=== PATIENT | male | born 1970 | race Caucasian/White ===

== ENCOUNTER 2016-09-05 13:18 | Emergency (ER) | payer BC, OTHER ==
[2016-09-05] MEDS ORDERED: MAG HYDROX/AL HYDROX/SIMETH 30 ML CUP PO STA (14:16)
--- NOTE | 2016-09-05 14:24 | ED ---
General Adult HPI - General Chief complaint: Recheck/Abnormal Lab/Rx Stated complaint: Acid Reflux Source: patient Mode of arrival: ambulatory Limitations: no limitations - History of Present Illness Initial comments: Patient is a 46-year-old male percents for evaluation for possible piece of steak stuck in his esophagus. Past medical history as below. Patient has a history of getting meat stuck in his esophagus in the past. Last episode was about 5 years ago. He has a history of gastric reflux. Is actually scheduled for an EGD and colonoscopy this week. Stated he was eating steak last night he felt a piece of meat get stuck in his lower esophagus. He went to bed last night 3 thought he got it out. This morning when he was driving to work, he was sipping on coffee and he threw up. He went home and tried to eat a salad and threw that up as well. As he thought it was still stuck in his esophagus, he came in for evaluation. While in the waiting room he is drinking water and was able to keep it down. He now believes that the piece of meat is gone. He states he feels well. Denies fever, chills, headache, changes in vision, URI symptoms, shortness breath, cough, chest pain, nausea or vomiting, diarrhea, pain or burning with urination. - Related Data Home Medications Medication Instructions Recorded Confirmed HYDROcodone/APAP 10-325MG [[place] 1 tab PO DAILY 08/22/14 09/05/16 10-325] Omeprazole [PriLOSEC] 20 mg PO DAILY 08/22/14 09/05/16 Fluticasone Nasal [place] [Flonase 1 spray EA NOSTRIL DAILY PRN 09/05/16 09/05/16 Nasal [place]] Allergies Allergy/AdvReac Type Severity Reaction Status Date / Time cefazolin sodium AdvReac Unknown Verified 09/05/16 14:24 [From [facility]] Review of Systems ROS Statement: Those systems with pertinent positive or pertinent negative responses have been documented in the HPI. ROS Other: All systems not noted in ROS Statement are negative. Past Medical History Past Medical History: GERD/Reflux Additional Past Medical History / Comment(s): sleep apnea History of Any Multi-Drug Resistant Organisms: None Reported Past Surgical History: Joint Replacement Additional Past Surgical History / Comment(s): bilateral knee replacement Past Psychological History: No Psychological Hx Reported Smoking Status: Current every day smoker Past Alcohol Use History: Daily Past Drug Use History: None Reported General Exam Limitations: no limitations General appearance: alert, in no apparent distress, other (Well-appearing. No drooling.) Head exam: Present: atraumatic, normocephalic, normal inspection Eye exam: Present: normal appearance, PERRL, EOMI. Absent: scleral icterus, conjunctival injection, periorbital swelling ENT exam: Present: normal exam, mucous membranes moist, other (Absent uvula. Some mild erythema to the posterior oropharynx) Neck exam: Present: normal inspection. Absent: tenderness, meningismus, lymphadenopathy Respiratory exam: Present: normal lung sounds bilaterally, other (Clear bilaterally without wheezes rales or rhonchi. No conversational dyspnea hypoxia or tachypnea.). Absent: respiratory distress, wheezes, rales, rhonchi, stridor Cardiovascular Exam: Present: regular rate, normal rhythm, normal heart sounds. Absent: systolic murmur, diastolic murmur, rubs, gallop, clicks GI/Abdominal exam: Present: soft, normal bowel sounds, other (Abdomen is soft and nontender.). Absent: distended, tenderness, guarding, rebound, rigid Extremities exam: Present: normal inspection, full ROM, normal capillary refill. Absent: tenderness, pedal edema, joint swelling, calf tenderness Back exam: Present: normal inspection Neurological exam: Present: alert, oriented X3, CN II-XII intact Psychiatric exam: Present: normal affect, normal mood Skin exam: Present: warm, dry, intact, normal color. Absent: rash Course Vital Signs 09/05/16 09/05/16 13:20 15:04 Temperature 97.6 F 97.6 F Pulse Rate 74 74 Respiratory 16 16 Rate Blood Pressure 130/76 130/76 O2 Sat by Pulse 98 98 Oximetry Medical Decision Making - Medical Decision Making 1420: Patient is a 46-year-old male who presents for evaluation for a sensation that something is stuck in his lower esophagus. He has a history of this. He for thinks that it is cleared currently. Was able tolerate water in the waiting room. We'll give an oral challenge. Maalox. 2 view CXR. 1535: Review chest x-ray. No obvious infiltrates or clear obstruction. Patient attempted by mouth challenge with Vikas much and water. Stated that he had a fullness sensation. Started coughing. Unable to tolerate. Page to GI health occupations instructor. 1540: Spoke with Dr. Gonzalez - Will come and evaluate the pt. NPO. 1645: Reevaluated the patient. Resting comfortably in the stretcher. Still feels a pressure-like sensation in his lower esophagus. Awaiting GI evaluation. 1730: EGD performed. She has lower esophageal strictures. Recommended that he take his Prilosec twice a day. Follow-up with Dr. Gonzalez in one month. Discussed with the patient. Voiced understanding. Recommended that he avoid any meat. Also recommended chewing his food thoroughly and small swallows. I discussed signs and symptoms on when to return to the emergency department for further evaluation. Answered all questions. Comfortable with discharge home. His and son are coming to pick him up. He will not drive home. Disposition Clinical Impression: Esophageal stricture, Hiatal hernia Disposition: HOME SELF-CARE Condition: Good Instructions: Esophageal Stricture (ED) Referrals: Manan Arguello DO [Primary Care Provider] - 1-2 days Henry Gonzalez MD [STAFF PHYSICIAN] - 1-2 days
[2016-09-05] MEDS ORDERED: LIDOCAINE VISCOUS 2% 15 ML CUP MUCOUS MEM ONE (14:39)
--- NOTE | 2016-09-05 15:02 | XR ---
EXAMINATION TYPE: XR chest 2V DATE OF EXAM: 09/05/2016 COMPARISON: 06/20/2011 HISTORY: Chest pain TECHNIQUE: Frontal and lateral views of the chest are obtained. FINDINGS: There is no focal air space opacity. No evidence for pneumothorax. No pleural effusion. The cardiac silhouette size is within normal limits. The osseous structures are grossly intact. IMPRESSION: 1. No acute cardiopulmonary process.
[2016-09-05] MEDS ORDERED: PROPOFOL 10 MG/ML 20 ML VIAL IV ONE (16:59)
[2016-09-05] MEDS ORDERED: LIDOCAINE 1% INJ 10MG/ML (20 ML MDV) ONE (16:59)
[2016-09-05] MEDS ORDERED: SODIUM CHLORIDE 0.9% 500 ML IV ONE (17:00)
[2016-09-05 17:57] VITALS: BP 134/73; PULSE 64; RESP 20; TEMP 98.2
== END 2016-09-05 17:56 | disposition home or self-care (01) ==
LOC: EC 13:18
DX: K22.2 Esophageal obstruction (principal); K44.9 Diaphragmatic hernia without obstruction or gangrene; K21.9 Gastro-esophageal reflux disease without esophagitis; F17.200 Nicotine dependence, unspecified, uncomplicated; Z88.1 Allergy status to other antibiotic agents; Z79.891 Long term (current) use of opiate analgesic; Z79.899 Other long term (current) drug therapy
CPT/HCPCS: 99284; 96360; 71020; 43235; J2001; J2704

== ENCOUNTER → 2016-09-09 | Outpatient (CLI) | payer BC, OTHER ==
--- NOTE | 2016-09-09 17:51 | US ---
EXAMINATION TYPE: US thyroid st tissue head/neck DATE OF EXAM: 09/09/2016 COMPARISON: 09/05/2014 CLINICAL HISTORY: E0402 GOITER. Follow up known nodules GLAND SIZE: Right Lobe: 4.6 x 1.6 x 2.0 cm Overall Parenchyma: heterogenous Left Lobe: 3.8 x 1.7 x 1.7 cm Overall Parenchyma: heterogeneous Isthmus Thickness: 0.4 cm NODULES RIGHT: # of nodules measured on right: 4 1. 1.8 X 1.4 x 1.4 cm hypoechoic mixed nodule at the mid pole with well-defined margins. This nodul e is wider than tall and shows intranodular vascularity. Prior size: 1.5 x 1.1 x 1.2 cm 2. 0.7 X 0.6 x 0.8 cm calcified shadowing nodule at the upper pole with well-defined margins. This n odule is wider than tall and shows no intranodular vascularity. Prior size: 0.8 x 0.7 x 0.7 cm 3. 0.9 X 0.8 x 0.7 cm hypoechoic mixed nodule at the mid pole with well-defined margins. This nodule is wider than tall and shows no intranodular vascularity. Prior size: 0.8 x 0.7 x 0.7 cm 4. 0.5 X 0.4 x 0.4 cm hypoechoic mixed nodule at the mid pole with well-defined margins. This nodule is wider than tall and shows no intranodular vascularity. Prior size: 0.5 x 0.5 x 0.4 cm LEFT: # of nodules measured on left: 1 1. 0.8 X 0.8 x 0.9 cm hypoechoic mixed nodule at the lower pole with well-defined margins. This nod ule is wider than tall and shows no intranodular vascularity. Prior size: 0.8 x 0.7 x 0.6 cm ISTHMUS: # of nodules measured in the isthmus: 0 Bilateral neck scanned, no evidence of lymphadenopathy. Heterogeneous thyroid with bilateral nodules described above. IMPRESSION: Bilateral multiple findings consistent with multinodular goiter. There is overall no adverse change c ompared to old exam.
== END | disposition home or self-care (01) ==
LOC: RADUSWWP 16:40
PROVIDERS: ATTEND Family Medicine
DX: E04.2 Nontoxic multinodular goiter (principal)
CPT/HCPCS: 76536

== ENCOUNTER 2016-11-22 07:30 | Day surgery (SDC) | payer BC, OTHER ==
[2016-11-21 11:26] VITALS: BMI 28.0
[2016-11-22 07:53] VITALS: TEMP 98.2
[2016-11-22] MEDS: LACTATED RINGERS 1,000 ML IV SCH ×2 (08:01→08:43)
[2016-11-22] MEDS ORDERED: PROPOFOL 10 MG/ML 20 ML VIAL IV ONE (08:45)
[2016-11-22 09:29] VITALS: BP 114/78; PULSE 74; RESP 18
--- NOTE | 2016-11-22 09:42 | P.PCN ---
Date of Procedure: 11/22/16 Procedure(s) Performed: Procedure: 1. Esophagogastroduodenoscopy and biopsy. 2. Total colonoscopy. Preoperative diagnosis: Dysphagia and change in bowel habits. Postoperative diagnosis: 1. Hiatal hernia and distal esophagitis with nonobstructing stricture. 2. Mild antral gastritis. 3. Colonoscopy within normal limits. Preparation: HalfLytely prep. Sedation: Was provided by anesthesia. Brief clinical history: The patient is a 46-year-old male who was scheduled for this evaluation because of change in bowel habits. The patient has chronic reflux for more than 10 years requiring PPI therapy and was in the emergency room around 6 weeks ago with obstructive dysphagia after he ate a piece of steak. The patient had similar episode several years prior. Procedure: With the patient on his left lateral decubitus position and after informed consent and adequate sedation, I passed the Olympus-GIF 160 video upper endoscope through the cricopharyngeus down the esophagus. GE junction was around 36 cm from the incisors and there was a 2-3 cm sliding hiatal hernia. The distal esophagus showed a broad erosion and superficial ulceration close to the GE junction and there was a short benign nonobstructing stricture but no evidence of Waters's esophagus or bleeding. The endoscope was then passed into the stomach which was insufflated with air and inspected in detail including the retroflex view in the cardia. Finally, the endoscope was passed through the pylorus into the duodenum. Pyloric channel, duodenal bulb, post bulbar area and descending duodenum appeared within normal limits. The antrum showed some mottling and erythema consistent with mild gastritis but no ulcers or erosions. At this point, I proceeded to obtain biopsies from the duodenum, antrum, GE junction and esophagus before the endoscope was withdrawn and I then proceeded with the colonoscopy. Perianal area did not show any fissures or fistulas. There were no masses felt on digital rectal examination. The Olympus CFQ 160L video colonoscope was then inserted in the rectum in the usual fashion and advanced to the cecum. I intubated the ileocecal valve and examined the terminal ileum. Terminal ileum and colon appeared healthy with no edema, erythema, exudation, ulceration or spontaneous bleeding. No polyps or tumors were seen or any obvious diverticular disease or other pathology. No biopsies were indicated. I retroflexed the endoscope in the rectum before the endoscope was withdrawn. The patient tolerated the procedure well. Plan: The patient was reassured. Will await biopsy results. Further plans can be made based on his course and biopsy results. I recommended repeat colonoscopy in 10 years in the absence of family history of colon cancer or finding of polyps today. He will follow up with you as planned.
== END 2016-11-22 10:27 | disposition home or self-care (01) ==
LOC: ORWHC2ENDO 07:30
DX: K29.50 Unspecified chronic gastritis without bleeding (principal); K21.0 Gastro-esophageal reflux disease with esophagitis; K44.9 Diaphragmatic hernia without obstruction or gangrene; K20.0 Eosinophilic esophagitis; R19.4 Change in bowel habit; Z87.891 Personal history of nicotine dependence; G47.33 Obstructive sleep apnea (adult) (pediatric); Z79.891 Long term (current) use of opiate analgesic; Z79.899 Other long term (current) drug therapy; Z88.1 Allergy status to other antibiotic agents
CPT/HCPCS: 88305; 88342; 45378; 43239; J2704

== ENCOUNTER → 2017-10-24 | Outpatient (CLI) | payer BC ==
--- NOTE | 2017-10-25 08:02 | US ---
EXAMINATION TYPE: US thyroid st tissue head/neck DATE OF EXAM: 10/24/2017 COMPARISON: US 09/09/2016 CLINICAL HISTORY: 47-year-old male E04.2 Nontoxic Multinodular Goiter. TECHNIQUE: Multiple sonographic images of the thyroid gland are obtained. FINDINGS: GLAND SIZE: Right Lobe: 4.1 x 1.8 x 1.6 cm Overall Parenchyma: heterogenous Left Lobe: 4.4 x 1.6 x 1.5 cm Overall Parenchyma: heterogeneous Isthmus Thickness: 0.4 cm NODULES RIGHT: # of nodules measured on right: 3 1. 2.2 X 1.6 x 1.8 cm hypoechoic mixed nodule at the mid pole with well-defined margins; . This no dule is wider than tall and shows intranodular vascularity. Prior size: 1.8 x 1.4 x 1.4 cm 2. 0.6 X 0.7 x 0.7 cm echogenic solid calcified nodule at the upper pole with well-defined margins; . This nodule is wider than tall and shows no intranodular vascularity. Prior size: 0.7 x 0.6 x 0.8 cm 3. 1.0 X 0.9 x 0.9 cm hypoechoic mixed nodule at the mid pole with well-defined margins; . This nod ule is wider than tall and shows intranodular vascularity. Prior size: 0.9 x 0.8 x 0.7 cm LEFT: # of nodules measured on left: 1 1. 0.8 X 0.5 x 0.9 cm hypoechoic mixed nodule at the lower pole with well-defined margins; . This nodule is wider than tall and shows intranodular vascularity. Prior size: 0.8 x 0.8 x 0.9 cm ISTHMUS: # of nodules measured in the isthmus: 0 Bilateral neck scanned, no evidence of lymphadenopathy. IMPRESSION: Multinodular thyroid gland. Dominant nodule in the right midpole is mixed, solid cystic but primarily solid and has increased in size from 1.8 x 1.4 cm now measuring 2.2 x 1.8 cm. The decision to biopsy should be made on a clinical basis.
== END | disposition home or self-care (01) ==
LOC: RADUSWWP 15:26
PROVIDERS: ATTEND Family Medicine
DX: E04.2 Nontoxic multinodular goiter (principal)
CPT/HCPCS: 76536

== ENCOUNTER → 2019-02-01 | Outpatient (CLI) | payer OTHER ==
--- NOTE | 2019-02-01 14:39 | US ---
EXAMINATION TYPE: US thyroid st tissue head/neck DATE OF EXAM: 02/01/2019 COMPARISON: US 10/24/2017 and 09/09/2016 CLINICAL HISTORY: E04.2 Thyroid nodules. Follow up thyroid nodules, history of FNA GLAND SIZE: Right Lobe: 4.4 x 1.8 x 2.3 cm Overall Parenchyma: heterogenous Left Lobe: 3.3 x 1.4 x 1.3 cm Overall Parenchyma: heterogeneous Isthmus Thickness: 0.4 cm NODULES RIGHT: # of nodules measured on right: 2 1. 2.3 X 1.5 x 2.0 cm hypoechoic mixed nodule at the mid pole with well-defined margins. This nodul e is wider than tall and shows intranodular vascularity. Prior size: 2.2 x 1.6 x 1.8 cm 2. 0.7 X 0.6 x 0.6 cm echogenic solid calcification at the upper pole with well-defined margins. Thi s nodule is wider than tall and shows no intranodular vascularity. Prior size: 0.6 x 0.7 x 0.7 cm 3. nodule #3 from previous exam not seen on today's study LEFT: # of nodules measured on left: 1 1. 0.8 X 0.7 x 0.7 cm hypoechoic mixed nodule at the lower pole with well-defined margins. This nod ule is wider than tall and shows intranodular vascularity. Prior size: 0.8 x 0.5 x 0.9 cm ISTHMUS: # of nodules measured in the isthmus: 0 Bilateral neck scanned, no evidence of lymphadenopathy. IMPRESSION: Multinodular goiter. Similar size of the bilateral thyroid nodules although there is nonv isualization of one of the right thyroid nodules that was seen on the prior examination.
== END | disposition home or self-care (01) ==
LOC: RADUSWWP 12:34
PROVIDERS: ATTEND Family Medicine
DX: E04.2 Nontoxic multinodular goiter (principal)
CPT/HCPCS: 76536

== ENCOUNTER → 2019-04-20 | Outpatient (CLI) | payer OTHER ==
--- NOTE | 2019-04-21 14:51 | CT ---
EXAMINATION TYPE: CT abdomen wo/w con DATE OF EXAM: 04/20/2019 COMPARISON: None INDICATION: Renal mass DLP: 834 mGycm, Automated exposure control for dose reduction was used. CONTRAST: 100 mL of Isovue 300. Study performed without Oral Contrast TECHNIQUE: Axial images were obtained from above the diaphragm to the iliac crests in the axial plane at 5 mm thick sections. Reconstructed images are reviewed on the computer in the coronal plane. Pr e and postcontrast imaging is performed. FINDINGS: Limited CT sections are obtained the lung bases. The lung bases are clear. CT ABDOMEN: Liver: Normal Spleen: Normal Pancreas: Normal Adrenal glands: The adrenal glands are normal. Gallbladder: Normal Kidneys: No masses are evident. Pre and postcontrast imaging was obtained through the kidneys. A tiny exophytic area on this posterior superior medial left kidney measures 0.7 cm has some mild enhanceme nt. A very tiny mass at this level cannot be excluded. Series 6 image 27, series 13 image 68. No hydronephrosis is present. No cysts are present. Delayed images were obtained through the kidn eys, which remain otherwise unremarkable. Aorta: Vascular calcification is within the aorta. Inferior vena cava: Normal. Loops of bowel without oral contrast appear unremarkable. IMPRESSIONS: 1. Very tiny exophytic area of the posterior medial superior pole left kidney may be present measuri ng 0.7 cm. This does not follow a typical exophytic cyst and may have some minimal enhancement. A carlos y small mass cannot be excluded at this level. 2. The bilateral kidneys otherwise appear unremarkable
== END | disposition home or self-care (01) ==
LOC: RADCTMAIN 14:21
PROVIDERS: ATTEND Family Medicine
DX: N28.89 Other specified disorders of kidney and ureter (principal)
CPT/HCPCS: 74170; Q9967

== ENCOUNTER → 2019-11-25 | Outpatient (CLI) | payer OTHER ==
--- NOTE | 2019-11-25 16:56 | CT ---
EXAMINATION TYPE: CT abdomen wo/w con DATE OF EXAM: 11/25/2019 COMPARISON: 04/20/2019 HISTORY: Follow up for left kidney cyst. CT DLP: 789.4 mGycm CONTRAST: CT scan of the abdomen is performed with Oral Contrast and without and with IV Contrast, patient inje cted with 100ml mL of Isovue 300. FINDINGS: LUNG BASES-: No visible nodule. No infiltrate. LIVER/GB: No calcified gallstones. No space occupying hepatic lesion. Biliary tree is of normal ca liber. PANCREAS: No inflammation. No distinct mass. SPLEEN: No splenic enlargement. No lesion seen. ADRENALS: No nodule. No thickening. KIDNEYS/BLADDER: No hydronephrosis. No nephrolithiasis. 8 mm lesion upper pole left kidney is stabl e and too small to appropriately characterize. Small solid lesion is difficult to exclude. Consider M RI characterization. Urinary bladder grossly unremarkable. BOWEL: Normal bowel caliber. No inflammation. LYMPH NODES: No greater than 1cm abdominal or pelvic lymph nodes are appreciated. AORTA: No significant abnormality. OSSEOUS STRUCTURES: No significant abnormality is seen. OTHER: No significant additional abnormality is seen. IMPRESSION: 1. 8 mm lesion upper pole left kidney is stable and too small to appropriately characterize. Small so lid lesion is difficult to exclude. Consider MRI characterization.
== END | disposition home or self-care (01) ==
LOC: RADCTMAIN 15:41
PROVIDERS: ATTEND Urology
DX: N28.89 Other specified disorders of kidney and ureter (principal); D41.02 Neoplasm of uncertain behavior of left kidney
CPT/HCPCS: 74170; Q9967

== ENCOUNTER → 2021-07-07 | Outpatient (CLI) | payer OTHER ==
--- NOTE | 2021-07-07 15:51 | US ---
EXAMINATION TYPE: US thyroid st tissue head/neck DATE OF EXAM: 07/07/2021 COMPARISON: US CLINICAL HISTORY: E04.2 NON TOXIC MULTINODULAR GOITER. F/U prior GLAND SIZE: Right Lobe: 4.3 x 1.8 x 2.1 cm Overall Parenchyma: heterogenous Left Lobe: 3.8 x 1.9 x 1.4 cm Overall Parenchyma: heterogeneous Isthmus Thickness: 0.3 cm NODULES RIGHT: # of nodules measured on right: 2 1. 2.3 X 1.6 x 1.9 cm, mid , solid or almost completely solid, hypoechoic nodule, which is wider th an tall, with smooth margins, without echogenic foci. TR 4 Prior size: 2.3 x 1.5 x 2.0 cm 2. 0.7 X 0.6 x 0.7 cm, upper, solid or almost completely solid, hypoechoic nodule, which is wider t ramos tall, with smooth margins, with calcified rim Prior size: 0.7 x 0.6 x 0.6 cm LEFT: # of nodules measured on left: 1 1. 0.8 X 0.6 x 0.7 cm, lower, solid or almost completely solid, hypoechoic nodule, which is wider t ramos tall, with smooth margins, without echogenic foci. Prior size: 0.8 x 0.7 x 0.7 cm ISTHMUS: # of nodules measured in the isthmus: 0 Bilateral neck scanned, no evidence of lymphadenopathy. Stable nodules bilaterally. IMPRESSION: Moderately suspicious nodule right lobe thyroid. Fine-needle aspiration recommended. 2017 ACR TI-RADS LEVEL: TR-RADS 4 - Moderately Suspicious: Follow if > 1 cm, FNA if > 1.5 cm *Highest TI-RADS level nodule reported
== END | disposition home or self-care (01) ==
LOC: RADUSWWP 14:40
PROVIDERS: ATTEND Internal Medicine
DX: E04.2 Nontoxic multinodular goiter (principal)
CPT/HCPCS: 76536

== ENCOUNTER → 2021-09-15 | Outpatient (CLI) | payer OTHER ==
--- NOTE | 2021-09-15 14:47 | CT ---
EXAMINATION TYPE: CT abdomen wo/w con CT DLP: 1241 mGycm, Automated exposure control for dose reduction was used. DATE OF EXAM: 09/15/2021 2:33 PM COMPARISON: CT abdomen pelvis most recent from 11/25/2019. 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 Oral contrast was administered. Delayed imaging was obtained. Coronal and sagittal reformats were performed. FINDINGS: LOWER CHEST: Unremarkable ABDOMEN LIVER: Unremarkable GALLBLADDER AND BILE DUCTS: Unremarkable. PANCREAS: Unremarkable. SPLEEN: Unremarkable. ADRENAL GLANDS: Unremarkable. KIDNEYS AND URETERS: No evidence of hydronephrosis or renal calculus. The kidneys enhance symmetrical ly. Stable tiny exophytic lesion in the posterior superomedial left kidney measuring 8 mm. This is to o small to accurately characterize. Level of enhancement is difficult to discern due to size. Small s olid lesion is difficult to exclude. PELVIS BLADDER: Unremarkable REPRODUCTIVE: Unremarkable. ABDOMEN & PELVIS STOMACH AND BOWEL: Stomach and duodenum are unremarkable. No focal wall thickening or surrounding inf lammatory changes. No evidence of bowel obstruction. PERITONEUM: No evidence of pneumoperitoneum or free fluid. VASCULATURE: No evidence of aortic aneurysm. MUSCULOSKELETAL: No acute osseous abnormalities. No suspicious osseous lesions. Degenerative changes of the visualized spine. LYMPH NODES: No gross evidence for lymphadenopathy. SOFT TISSUE/ABDOMINAL WALL: Unremarkable IMPRESSION: * Stable 8 mm cystic lesion from the upper pole of the left kidney which is too small to characteriz e on CT. Small solid lesion is not excluded. Consider MRI for further characterization.
== END | disposition home or self-care (01) ==
LOC: RADCTMAIN 13:06
PROVIDERS: ATTEND Urology
DX: D41.02 Neoplasm of uncertain behavior of left kidney (principal)
CPT/HCPCS: 74170; 36415; Q9967 ×2

== ENCOUNTER → 2023-03-14 | Outpatient (CLI) | payer OTHER ==
--- NOTE | 2023-03-14 16:11 | CT ---
EXAMINATION TYPE: CT abdomen wo/w con DATE OF EXAM: 03/14/2023 COMPARISON: 09/15/2021 INDICATION: f/u renal mass DLP: 1082.1 mGycm, Automated exposure control for dose reduction was used. CONTRAST: 100 mL of Isovue 300. Study performed with Oral Contrast TECHNIQUE: Axial images were obtained from above the diaphragm to the pubic rami in the axial plane a t 5 mm thick sections. Reconstructed images are reviewed on the computer in the coronal plane. FINDINGS: Limited CT sections are obtained the lung bases. The lung bases are clear. CT ABDOMEN: Liver: Normal Spleen: Normal Pancreas: Normal Adrenal glands: The adrenal glands are normal. Gallbladder: Normal Kidneys: No masses are evident. No hydronephrosis is present. 0.9 cm hypodense area from the superi or medial left kidney measures 12 Hounsfield units. Delayed images were obtained through the kidneys , which otherwise remain unremarkable. Aorta: Normal Inferior vena cava: Normal. Loops of bowel within the abdomen and upper pelvis are normal. There are loops of bowel which are incompletely distended or lack oral contrast limiting their evaluation. Appendix: Not identified. No dilated tubular structure is evident within the [id number]. IMPRESSION: 1. Tiny hypodensity on postcontrast images posterior medial left renal upper pole appears stable fro m comparison. No new lesions identified.
== END | disposition home or self-care (01) ==
LOC: RADCTMAIN 13:39
PROVIDERS: ATTEND Urology
DX: N28.1 Cyst of kidney, acquired (principal)
CPT/HCPCS: 74170; Q9967

== ENCOUNTER → 2023-03-14 | Outpatient (CLI) | payer OTHER ==
--- NOTE | 2023-03-14 15:20 | US ---
EXAMINATION TYPE: US thyroid st tissue head/neck DATE OF EXAM: 03/14/2023 COMPARISON: US 2021 CLINICAL INDICATION: Male, 52 years old with history of E04.2 NONTOXIC MULTINODULAR GOITER; GLAND SIZE: Right Lobe: 4.4 x 2.0 x 2.5 cm Overall Parenchyma: heterogenous Left Lobe: 4.0 x 1.4 x 1.4 cm Overall Parenchyma: heterogenous Isthmus Thickness: 0.4 cm NODULES RIGHT: # of nodules measured on right: 2 1. 2.6 X 1.7 x 2.4 cm, mid, Prior size: 2.3 x 1.6 x 1.9 cm TIRADS Score: 4 TIRADS Category 4: Composition: Mixed cystic and solid (1 point). Echogenicity: Hypoechoic (2 points). Shape: Wider than tall (0 points). Margin: Smooth (0 points). Echogenic foci: None or large comet-tail artifacts (0 points) Macrocalcifications (1 point) Recommendation: If >1.5cm: FNA; If >1cm: Follow up at 1,2, 3,5 years 2. 0.7 X 0.6 x 0.7 cm, upper mid, calcification, Prior size: 0.7 x 0.6 x 0.7 cm TIRADS Score: 5 TIRADS Category 4: Composition: Solid or almost completely solid (2 points). Echogenicity: Hypoechoic (2 points). Shape: Wider than tall (0 points). Margin: Smooth (0 points). Echogenic foci: Macrocalcifications (1 point) Recommendation: If >1.5cm: FNA; If >1cm: Follow up at 1,2, 3,5 years LEFT: # of nodules measured on left: 0 ISTHMUS: # of nodules measured in the isthmus: 0 Bilateral neck scanned, no evidence of lymphadenopathy. IMPRESSION: Stable heterogenous thyroid gland with right thyroid nodules.
== END | disposition home or self-care (01) ==
LOC: RADUSWWP 14:35
PROVIDERS: ATTEND Family Medicine
DX: E04.2 Nontoxic multinodular goiter (principal)
CPT/HCPCS: 76536

== ENCOUNTER → 2024-04-26 | Outpatient (CLI) | payer OTHER ==
--- NOTE | 2024-04-26 19:05 | US ---
EXAMINATION TYPE: US kidneys/renal and bladder DATE OF EXAM: 04/26/2024 COMPARISON: CT dated 03/14/2023 CLINICAL INDICATION: Male, 53 years old with history of N28.1 RENAL CYST; renal cyst TECHNIQUE: Grayscale imaging of the bilateral kidneys and urinary bladder: FINDINGS: EXAM MEASUREMENTS: Right Kidney: 10.1 x 5.2 x 4.4 cm Left Kidney: 9.7 x 6.0 x 4.5 cm Right Kidney: No hydronephrosis or masses seen Left Kidney: Area seen on ct scan not well visualized on ultrasound. Bladder: anechoic Bilateral Jets seen: Right only There is no evidence for hydronephrosis at this point in time. No nephrolithiasis is seen. No ellis s are identified. The urinary bladder is anechoic. IMPRESSION: No discrete abnormality appreciated at this time. [facility], , 04/26/2024 7:03 PM
--- NOTE | 2024-04-29 07:42 | US ---
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 TECHNIQUE: Grayscale and color Doppler imaging of the thyroid gland. FINDINGS: GLAND SIZE: Right Lobe: 5.2 x 2.3 x 2.6 cm Overall Parenchyma: heterogeneous Left Lobe: 4.5 x 1.7 x 1.4 cm Overall Parenchyma: homogeneous Isthmus Thickness: .6 cm NODULES RIGHT: # of nodules measured on right: 2 1. 0.7 X 0.6 x 0.6 cm, upper lateral, solid or almost completely solid, Prior size: 0.7 x 0.6 x 0.7 cm TIRADS Score: 2 TIRADS Category 2: Not Suspicious Echogenic foci: Peripheral (rim) calcifications (2 points) Recommendation: No FNA 2. 3.1 X 2.2 x 2.4 cm, mid , solid or almost completely solid, Prior size: 2.6 x 1.7 x 2.4 cm TIRADS Score: 3 TIRADS Category 3: Mildly Suspicious Composition: Solid or almost completely solid (2 points). Echogenicity: Hyperechoic or isoechoic (1 point). Shape: Wider than tall (0 points). Margin: Smooth (0 points). Echogenic foci: None or large comet-tail artifacts (0 points) Recommendation: If >2.5cm: FNA; If >1.5cm: Follow up at 1,3,5 years LEFT: # of nodules measured on left: 0 ISTHMUS: # of nodules measured in the isthmus: 0 Bilateral neck scanned, no evidence of lymphadenopathy. IMPRESSION: Right TI-RADS 3 nodule in each criteria for biopsy of not already performed. [facility], , 04/29/2024 7:40 AM
== END | disposition home or self-care (01) ==
LOC: RADUSWWP 15:34
PROVIDERS: ATTEND Urology
DX: N28.1 Cyst of kidney, acquired (principal); E04.2 Nontoxic multinodular goiter
CPT/HCPCS: 76536; 76770